=== PATIENT | male | born 1975 | race Caucasian/White ===

== ENCOUNTER → 2024-01-15 16:20 | Outpatient (REF) | payer OTHER, SELFPAY | LOC: RAD 16:20 | PROVIDERS: ATTENDING PHYSICIAN Orthopaedic Surgery | DX: M25.561 Pain in right knee (principal) | CPT/HCPCS: 73590 ==

== ENCOUNTER 2024-07-31 06:20 | Day surgery (SDC) | payer OTHER, SELFPAY ==
[2024-07-23 13:45] VITALS: BMI 27.2
[2024-07-31] VITALS (7 sets, daily range): BP systolic 114–135; BP diastolic 66–89; BMI 27.2
== END 2024-07-31 15:02 | disposition home or self-care (01) ==
LOC: SDS 06:20
PROVIDERS: ATTENDING PHYSICIAN Surgery
DX: L05.91 Pilonidal cyst without abscess (principal)
CPT/HCPCS: 11770; 36415; 93005